=== PATIENT | female | born 1940 | race Caucasian/White ===

== ENCOUNTER 2024-04-02 17:52 | Emergency (ER) | payer MEDICARE, SELFPAY ==
[2024-04-02 17:54] VITALS: BP 142/78
[2024-04-02 17:55] VITALS: BP 142/78
[2024-04-02 17:59] VITALS: BMI 27.2
[2024-04-02 18:00] VITALS: BP 140/56
[2024-04-02 19:00] VITALS: BP 130/70
--- NOTE | 2024-04-02 19:16 | ED.GENMED ---
History of Present Illness
General
Chief Complaint: Fall
Source: patient, records and care home records
Exam Limitations: dementia
Time Seen by Provider: 04/02/24 18:48
Nursing documentation reviewed up to this point in time: agreed with
History of Present Illness
History of Present Illness:
Patient is an 83-year-old female presents to the emergency department after losing her balance and striking her head and right knee at the care home today. Patient denies any knee pain, neck or head pain. Patient denies syncope. Patient denies
chest pain, shortness of breath or palpitations. Patient denies any extremity or back pain. Patient was recently diagnosed with Parkinson's. 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 Patient denies any recent illnesses, fever,
chills, nasal congestion, sore throat or cough. Patient denies any GI or symptoms.
Past History
Past History
ED Past Medical History: HTN and Other (Parkinson's, normal pressure hydrocephalus)
Social History
Tobacco: Non-smoker
Alcohol: None
Personal:
Living: care home
Review of Systems
Review of Systems
All Other Systems: Not applicable
Phy Exam
Physical Exam
Physical Exam:
Physical Exam
General: No apparent distress, alert and appropriate, well nourished, well hydrated
HENT: Normocephalic with contusion at the lateral aspect of the right eyebrow without deformity, supple with no tracheal deviation or contusion
Eyes: Clear sclera, conjuctiva without injection, extraocular muscles intact
Heart: Regular rhythm and rate. No S3, S4. No murmur. No NVD
Lungs: No respiratory distress, no stridor, lung sounds clear and equal bilaterally, chest wall symmetrical and nontender
Abdomen: Soft, nontender, BS good
Neuro: Alert and usual mental status, CN II - XII intact, no motor focality
Skin: no rash
Psychiatric: well kept. interactive and cooperative
Extremities: No edema, cyanosis, tenderness. Patient has small contusion on the anterior right knee without tenderness, instability with stressing in any plane.
Musculoskeletal: No cervical, thoracic or lumbar spine tenderness. No pelvic or hip tenderness with full range of motion
Course
Orders/Labs/Results
Orders:
Orders
04/02/24 18:03
CT Head W/o Iv Contrast Urgent
Comment:
Reason For Exam: fall/pain/abrasion
Vital Signs
Initial and Last Documented VS:
Initial Vital Signs
BP
142/78
04/02/24 17:54
Last Documented Vital Signs
Temp Pulse Resp BP Pulse Ox
98.6 F 61 18 133/68 97
04/02/24 20:00 04/02/24 18:00 04/02/24 18:00 04/02/24 20:17 04/02/24 20:19
*Radiology
Radiology exam reviewed: radiology read reviewed
*Pulse Oximetry
Patient hypoxic: no
*EKG
Interpreted by ED Provider?: NA
*Organizational Consultant Interpretation
Rate: Organizational Consultant- N/A
*Critical Care Note
Total Time (30-74mins, 75-104mins- exclusive of procedures): Not Applicable
ED Attending Note
-
Portions of this chart may have been created with voice recognition software.� Occasional wrong word or��sound alike� substitutions may have occurred due to the inherent limitations of voice recognition software.
Discharge Plan
Departure
Patient Disposition: Assisted Living
Date of Disposition: 04/02/24
Time of Disposition: 20:33
Patient with high blood pressure during this ER visit?: No
Condition: Good
Covid-19: Not Applicable
Discharge Problem:
Contusion of scalp, Fall, Contusion of knee
Instructions: Head Injury in Adults (DC), Contusion (DC), Preventing falls in adults
Prescriptions:
No Action
nifedipine 30 mg Tablet Extended Release
30 mg PO BID 30 Days Qty: 60 0RF
carbidopa-levodopa 25-100 mg Tablet
1.5 tab PO QID@0800,1200,1600,2000 30 Days Qty: 180 0RF
losartan 100 mg Tablet
100 mg PO DAILY 30 Days Qty: 30 0RF
cholecalciferol (vitamin D3) 50 mcg (2,000 unit) Tablet
50 mcg PO DAILY 30 Days Qty: 30 0RF
pravastatin 40 mg Tablet
40 mg PO HS Qty: 0 0RF
multivitamin with minerals Tablet
1 tab PO DAILY Qty: 0 0RF
Rx Instructions:
9 mg Iron-400 mcg
sertraline 50 mg Tablet
50 mg PO HS Qty: 0 0RF
carbidopa-levodopa 50-200 mg Tablet Extended Release
1 tab PO HS Qty: 0 0RF
Referrals:
Polly Alva CRNP [Family Provider] - As needed
Activity Restrictions/Additional Instructions:
Continue present medications and therapy. Acetaminophen 650 mg every 6 hours as needed for pain.
Interventions
Interventions:
*Risk Screen - Suicide Last Done: 04/02/24 17:55
*General Assessment Last Done: 04/02/24 17:55
*Neglect/Abuse Screening Last Done: 04/02/24 17:55
ED- Fall Risk Assessment Last Done: 04/02/24 17:59
*ED COVID-19 Vaccine History Last Done: 04/02/24 17:55
ED-Musculoskeletal Assessment Last Done: 04/02/24 18:00
ED- Neurological Assessment Last Done: 04/02/24 18:00
ED-Skin Assessment Last Done: 04/02/24 18:00
Discharge Date and Time
Print Language: KISWAHILI
[2024-04-02 20:17] VITALS: BP 133/68
[2024-04-02 21:00] VITALS: BP 137/109
== END 2024-04-02 22:19 ==
LOC: EMR 17:52
PROVIDERS: EMERGENCY PHYSICIAN Emergency Medicine; FAMILY PHYSICIAN Nurse Practitioner Family
DX: S00.03XA Contusion of scalp, initial encounter (principal); S80.01XA Contusion of right knee, initial encounter; W19.XXXA Unspecified fall, initial encounter
CPT/HCPCS: 99284; 70450

== ENCOUNTER 2024-06-19 18:47 | Emergency (ER) | payer MEDICARE, SELFPAY ==
[2024-06-19 18:50] VITALS: BP 140/64
[2024-06-19 19:00] VITALS: BP 142/66
[2024-06-19 19:14] LABS: % Basophils 0.1 % (0-2); % Eosinophils 1.8 % (0-6); % Immature Granulocytes 0.1 % (0-0.5); % Lymphocytes 11.1 % (20.5-51.1); % Monocytes 6.7 % (1.7-9.3); % Neutrophils 80.2 % (42.2-75.2); Absolute Eosinophils 0.1 10^3/uL (0-0.7); Absolute Lymphocytes 0.8 10^3/uL (1.2-3.4); Absolute Monocytes 0.5 10^3/uL (0.1-0.6); Absolute Neutrophils 5.8 10^3/uL (1.4-6.5); Hematocrit 34.5 % (37.0-47.0); Hemoglobin 11.2 g/dL (12.0-16.0); Mean Corp Hgb Conc. 32.5 g/dL (33.0-37.0); Mean Corpuscular Hgb 29.5 pg (27.0-31.0); Mean Corpuscular Volume 90.8 fL (81.0-99.0); Mean Platelet Volume 9.4 fL (7.4-10.4); Nucleated Red Blood Cells % 0 %; Platelet Count 200 10^3/uL (130-400); White Blood Cell Count 7.2 10^3/uL (4.8-10.8)
[2024-06-19 19:26] LABS: ALT (SGPT) < 10 U/L (0-35); AST (SGOT) 18 U/L (14-36); Albumin 4.3 g/dl (3.5-5.0); Alkaline Phosphatase 95 U/L (38-126); Blood Urea Nitrogen 19 mg/dl (7-17); Calcium 9.2 mg/dl (8.4-10.2); Carbon Dioxide 27 mmol/L (22-30); Chloride 104 mmol/L (98-107); Estimated Creatinine Clearance 47 ml/min; Glucose 118 mg/dl (70-99); Potassium 3.9 mmol/L (3.5-5.1); Sodium 139 mmol/L (135-145); Total Bilirubin 1.1 mg/dl (0.2-1.3); Total Protein 7.1 g/dl (6.3-8.2); eGFR > 60.00
--- NOTE | 2024-06-19 19:39 | ED.GENMED ---
History of Present Illness
General
Chief Complaint: Cold/Flu/URI Symptoms
Source: patient
Exam Limitations: dementia
Time Seen by Provider: 06/19/24 18:58
Nursing documentation reviewed up to this point in time: agreed with
History of Present Illness
History of Present Illness:
Patient is an 83 year-old female sent from [facility] for evaluation. Patient complains of cough for the past several days patient was tested for COVID and was negative at the facility. Patient denies any shortness of breath. Other than cough
and congestion she has no complaints. She does have dementia but is able to give some good history.
Past History
Past History
ED Past Medical History: HTN and Other (Parkinson's, normal pressure hydrocephalus)
Social History
Tobacco: Non-smoker
Alcohol: None
Personal:
Living: detention
Review of Systems
Review of Systems
Allergies reviewed?: Yes
All Other Systems: ROS reviewed and negative except as documented in HPI and ROS
Constitutional: Reports no symptoms; Denies fever
Respiratory: Reports cough
Cardiac: Reports no symptoms
ABD/GI: Reports no symptoms
: Reports no symptoms
Musculoskeletal: Reports no symptoms
Skin: Reports no symptoms
Neurological: Reports no symptoms
Psychiatric: Reports no symptoms
Phy Exam
General Physical Exam
General Presentation: no apparent distress
General age: appears stated age
General Skin: warm and dry
General Habitus: normal
General Mental: alert
General Hydration: appears well hydrated
Cardiovascular Exam
Cardiovascular Exam: regular rate/rhythm, no murmur and normal peripheral pulses
Pulmonary Exam
Pulmonary Exam: lungs clear and no respiratory distress
Neurological Exam
Neurological Exam: alert
Musculoskeletal Exam
Musculoskeletal Exam: full ROM
Skin Exam
Skin Exam: normal color and warm/dry
Psychiatric Exam
Psychiatric Exam: normal mood/affect
Sepsis
Sepsis Screening
Sepsis Assessment: Sepsis Ruled Out
Sepsis Screen
Sepsis Screen: Sepsis Ruled Out
Date: 06/19/24
Time: 22:24
Course
Orders/Labs/Results
Orders:
Orders
06/19/24 19:01
Complete Blood Count/With Diff Urgent
Comprehensive Metabolic Panel Urgent
Influenza A+B Rapid Molecular Urgent
[place] Source: Nasal Swab
Specimen Description:
06/19/24 19:38
Chest [CR Chest - 2 Views ] Urgent
Comment:
Reason For Exam: cough
06/19/24 19:39
Albuterol Nebs [Ventolin Nebules] 2.5 mg INH R NOW STA
06/19/24 20:10
Straight cath- Treatment ONCE
06/19/24 20:12
Acetaminophen [Tylenol] 650 mg PO NOW STA
06/19/24 20:55
UA Reflex to Culture [Urinalysis Reflex To Culture] Urgent
Date Specimen was Collected: 06/19/24
Time Specimen was Collected: 20:42
Urine Microscopic Reflex Cult Urgent
Urine Culture Urgent
[place] Source: U
Specimen Description:
Obtained by: Random
Date Specimen was Collected: 06/19/24
Time Specimen was Collected: 20:42
Abnormal Lab Results
06/19/24 06/19/24
19:01 20:55
RBC 3.80 L 10^6/uL
(4.20-5.40)
Hgb 11.2 L g/dL
(12.0-16.0)
Hct 34.5 L %
(37.0-47.0)
MCHC 32.5 L g/dL
(33.0-37.0)
Absolute Lymphs (auto) 0.8 L 10^3/uL
(1.2-3.4)
Neutrophils % 80.2 H %
(42.2-75.2)
Lymphocytes % 11.1 L %
(20.5-51.1)
BUN 19 H mg/dl
(7-17)
Glucose 118 H mg/dl
(70-99)
Urine Ketones 1+ A
(Negative)
Ur Occult Blood Reflex 1+ A
(Negative)
Leukocyte Esterase Rfl 2+ A
(Negative)
Urine RBC 3-6 A /HPF
(0-2)
Urine Bacteria (Reflex) Few A
(Negative)
06/19/24 19:01
06/19/24 19:01
Vital Signs
Initial and Last Documented VS:
Initial Vital Signs
Temp Pulse Resp BP Pulse Ox
100.6 F H 82 18 140/64 97
06/19/24 18:50 06/19/24 18:50 06/19/24 18:50 06/19/24 18:50 06/19/24 18:50
Last Documented Vital Signs
Temp Pulse Resp BP Pulse Ox
99.9 F 98 17 133/57 95
06/19/24 20:50 06/19/24 21:30 06/19/24 21:30 06/19/24 21:00 06/19/24 21:30
MDM/Problems Addressed
Differential Diagnosis Includes:
Not limited to URI, bronchitis, influenza, pneumonia
MDM/Problems Addressed:
Patient is an 83-year-old female that was sent from [place] [facility] [place] living with cough and weakness. Patient had a negative COVID test there. Patient has some mild dementia however able to give history. She does complain of some cough and
congestion but she denies any shortness of breath. She presented with a very low-grade fever however presented nontoxic no tachypneic and no respiratory distress. She had a mild cough and was given a neb here in the ER. No acute findings of
pneumonia on x-ray. Patient has a normal white count, normal creatinine no acute UTI. Patient nontachycardic normal white count nontachypneic no evidence of sepsis.
Daughter at bedside does feel the patient looks well. She is comfortable patient going back to [facility] with close outpatient follow the family doctor. She does report that new mentioned that she was very tired and they could not wake
her up however patient has been completely awake alert no acute distress she ate here and she is nontoxic-appearing. symptoms likely viral /bronchitis.
Chronic conditions affecting care:
Dementia Parkinson's
*Critical Care Note
Total Time (30-74mins, 75-104mins- exclusive of procedures): Not Applicable
ED Attending Note
-
Portions of this chart may have been created with voice recognition software.� Occasional wrong word or��sound alike� substitutions may have occurred due to the inherent limitations of voice recognition software.
Discharge Plan
Departure
Patient Disposition: Home (Routine Discharge)
Date of Disposition: 06/19/24
Time of Disposition: 22:22
Patient with high blood pressure during this ER visit?: Yes
Condition: Fair
Covid-19: Not Applicable
Discharge Problem:
Acute bronchitis
Instructions: Acute Bronchitis, Adult (DC), BLOOD PRESSURE
Prescriptions:
No Action
quetiapine [Seroquel] 25 mg Tablet
12.5 mg PO DAILY@1600
acetaminophen [Tylenol] 325 mg Tablet
650 mg PO Q4H PRN (Reason: pain/fever )
nifedipine 30 mg Tablet Extended Release
30 mg PO BID 30 Days Qty: 60 0RF
carbidopa-levodopa 25-100 mg Tablet
1.5 tab PO QID@0800,1200,1600,2000 30 Days Qty: 180 0RF
losartan 100 mg Tablet
100 mg PO DAILY 30 Days Qty: 30 0RF
cholecalciferol (vitamin D3) 50 mcg (2,000 unit) Tablet
50 mcg PO DAILY 30 Days Qty: 30 0RF
pravastatin 40 mg Tablet
40 mg PO HS Qty: 0 0RF
multivitamin with minerals Tablet
1 tab PO DAILY Qty: 0 0RF
Rx Instructions:
9 mg Iron-400 mcg
sertraline 50 mg Tablet
50 mg PO HS Qty: 0 0RF
carbidopa-levodopa 50-200 mg Tablet Extended Release
1 tab PO HS Qty: 0 0RF
Referrals:
Polly Alva CRNP [Family Provider] -
Activity Restrictions/Additional Instructions:
Patient was evaluated here in the ER x-ray negative for pneumonia patient's labs are unremarkable. Patient was given a nebulizer here however symptoms are likely bronchitis viral syndrome. Patient is to be evaluated by family doctor in the next
several days. Return if any worsening of symptoms
Interventions
Interventions:
*Risk Screen - Suicide Last Done: 06/19/24 18:50
*General Assessment Last Done: 06/19/24 18:50
*Neglect/Abuse Screening Last Done: 06/19/24 18:50
ED- Fall Risk Assessment Last Done: 06/19/24 19:31
*ED COVID-19 Vaccine History Last Done: 06/19/24 18:50
ED- Pulmonary Assessment Last Done: 06/19/24 19:31
Discharge Date and Time
Print Language: SAMI
[2024-06-19] MEDS: VENTOLIN NEBULES 2.5 MG INH (19:42)
[2024-06-19 20:00] VITALS: BP 142/58
[2024-06-19] MEDS: TYLENOL 650 MG PO (20:52)
[2024-06-19 21:00] VITALS: BP 133/57
[2024-06-19 21:03] LABS: Urine Albumin Negative (Neg - Trace); Urine Bilirubin Negative (Negative); Urine Character Clear (Clear); Urine Color Yellow; Urine Glucose Negative (Negative); Urine Ketone 1+ (Negative); Urine Leukocyte 2+ (Negative); Urine Nitrite Negative (Negative); Urine Occult Blood 1+ (Negative); Urine Urobilinogen Negative (Neg - 1+)
[2024-06-19 21:18] LABS: Urine Bacteria Few (Negative)
[2024-06-19 22:52] VITALS: BP 134/72
== END 2024-06-19 22:53 | disposition home or self-care (01) ==
LOC: EMR 18:47
PROVIDERS: Nurse Practitioner; EMERGENCY PHYSICIAN Emergency Medicine; FAMILY PHYSICIAN Nurse Practitioner Family
DX: J20.9 Acute bronchitis, unspecified (principal); R53.1 Weakness; F02.A0 Dementia in other diseases classified elsewhere, mild, without behavioral disturbance, psychotic disturbance, mood disturbance, and anxiety; G20.A1 Parkinson's disease without dyskinesia, without mention of fluctuations; K52.9 Noninfective gastroenteritis and colitis, unspecified; M48.00 Spinal stenosis, site unspecified; F41.9 Anxiety disorder, unspecified; F32.A Depression, unspecified; Z88.6 Allergy status to analgesic agent; Z90.49 Acquired absence of other specified parts of digestive tract
CPT/HCPCS: 99283; 94640; 71046; 80053; 81003; 81015; 85025; 87086; 87502

== ENCOUNTER 2025-03-24 12:42 | Emergency (ER) | payer MEDICARE, SELFPAY ==
[2025-03-24 12:47] VITALS: BP 150/71
[2025-03-24 12:48] VITALS: BMI 29.7
--- NOTE | 2025-03-24 14:20 | ED.GENMED ---
History of Present Illness
General
Chief Complaint: Fall
Source: patient
Exam Limitations: none
Time Seen by Provider: 03/24/25 12:57
Nursing documentation reviewed up to this point in time: agreed with
History of Present Illness
History of Present Illness:
see mdm
Past History
Past History
ED Past Medical History: HTN and Other (Parkinson's, normal pressure hydrocephalus)
Social History
Tobacco: Non-smoker
Alcohol: None
Personal:
Living: correction
Phy Exam
Physical Exam
Physical Exam:
GENERAL: Alert , in no apparent distress
HEAD: NCAT
NECK: In a c-collar, I did remove the c-collar and patient seem to have a little bit of tenderness to her lower spine so it was placed back on for imaging, she had no significant trapezial muscle tenderness,
EYE: pupils equal and reactive, EOMs intact.
ENT: o/p clr, mmm. no hemotympanum
CARDIAC: Regular rate and rhythm, no edema
LUNGS: Clear breath sounds bilaterally, no acute respiratory distress, no wheezes/rales/rhonchi
ABDOMEN: Soft, without focal tenderness, no r/g, no cvat
NEUROLOGICAL: Alert and oriented x 3 Can recall the incident, no focal neuro deficits, CN intact, 5/5 strength, sensation intact
SKIN: Warm and dry,
MUSCULOSKELETAL: No edema, well p shoulders, hips, knees, nontender, full painless range of motion
PSYCH: Normal and appropriate interaction.
Course
Orders/Labs/Results
Orders:
Orders
03/24/25 13:22
CT Cervical Spine W/o Iv Contr Urgent
Comment:
Reason For Exam: slid to ground, neck pain to L shoulder
Vital Signs
Initial and Last Documented VS:
Initial Vital Signs
Pulse Resp Pulse Ox
84 18 98
03/24/25 12:46 03/24/25 12:46 03/24/25 12:46
Last Documented Vital Signs
Temp Pulse Resp BP Pulse Ox
37.1 C 68 18 142/73 97
03/24/25 12:47 03/24/25 13:30 03/24/25 13:30 03/24/25 14:37 03/24/25 14:38
MDM/Problems Addressed
Differential Diagnosis Includes:
see MDM
MDM/Problems Addressed:
Note:
CHIEF COMPLAINT(S)
Neck discomfort after slipping off the bed.
HISTORY OF PRESENT ILLNESS
The patient is an 84-year-old female who presented after an event where she inadvertently slid off her bed while reaching for her slippers. She did not experience a fall in the traditional sense, as she slid to the ground and landed on her buttocks.
She did not hit her head or lose consciousness and reports having some padding that cushioned her fall. Since the incident, she has experienced neck discomfort, but no radiating pain down the arm, tingling, numbness, chest pain, or shortness of
breath. The patient denies taking any blood thinners.
The patients , who uses a wheelchair, did not witness the incident. After realizing what happened, he used a call button to alert assistance. The patient did not require immediate help from her or EMS. On-site staff assisted her with
getting up.
The patient is currently in a cervical collar for neck stabilization but finds it uncomfortable. There is tenderness over the neck area where the discomfort was initially felt. There were no episodes of the head snapping back or any wounds on the
head.
ADDITIONAL HISTORY OBTAINED FROM SOURCE OTHER THAN THE PATIENT
Information regarding the call button used to alert assistance was obtained from the patient�s .
PHYSICAL EXAM
- Nursing notes reviewed and vital signs reviewed.
- Some tenderness was noted over the cervical region where the patient reported initial discomfort.
- The patient can move her arms without exacerbating pain.
- No evident bruises or swelling in the neck and shoulder regions.
- The patient does not exhibit pain when sitting up or moving under observation.
PLAN
- Continue monitoring for any development of symptoms or changes in the cervical regions pain.
- Obtain a computed tomography scan of the cervical spine to rule out any significant injury.
- Educate the patient about the importance of keeping the cervical collar on until imaging confirms no serious injury.
- Assess the need for analgesics as requested by the patient.
DIFFERENTIAL DIAGNOSIS
The Differential Diagnosis includes, in no particular order and is not limited to:
- Cervical strain
- Cervical spine fracture
- Cervical disc herniation
- Muscle strain
- Soft tissue contusion
- Cervical radiculopathy
- Spinal cord injury
- Neck ligament sprain
- Mild traumatic brain injury
- Anxiety related to incident
84 y/o parkinsons
from [place]
here after slide/fal down to buttocks this am when she was readching for something to get out of bed
she landed on buttocks
witnessed by
both say no head strike
she had some L sided neck/shoulder pain after the fall so she was placed in collar
no weakness/numbness
no cp, sob, dizziness
pt feels better now and denies headache, head strike
no thinners
ct cervica spine neg
did not see indication for CT head, pt was able to fully recount story that corroborated who told EMS
pt was able to stand and pivot at the bedside
d/c home back to [place]
*Pulse Oximetry
SaO2: 97
Oxygen Mode of Delivery: Room air
Patient hypoxic: no (98)
*Critical Care Note
Total Time (30-74mins, 75-104mins- exclusive of procedures): Not Applicable
ED Attending Note
-
Portions of this chart may have been created with voice recognition software.� Occasional wrong word or��sound alike� substitutions may have occurred due to the inherent limitations of voice recognition software.
Discharge Plan
Departure
Patient Disposition: Senior Living/SNF
Date of Disposition: 03/24/25
Time of Disposition: 14:33
Patient with high blood pressure during this ER visit?: Yes
Condition: Fair
Covid-19: Not Applicable
Discharge Problem:
Fall, Cervical muscle strain
Instructions: Cervical Sprain ED
Prescriptions:
No Action
quetiapine [Seroquel] 25 mg Tablet
12.5 mg PO DAILY@1600
acetaminophen [Tylenol] 325 mg Tablet
650 mg PO Q4H PRN (Reason: pain/fever )
nifedipine 30 mg Tablet Extended Release
30 mg PO BID 30 Days Qty: 60 0RF
carbidopa-levodopa 25-100 mg Tablet
1.5 tab PO .COMPLEX 30 Days Qty: 180 0RF
Rx Instructions:
Frequency: QID@0800,1200,1600,2000
losartan 100 mg Tablet
100 mg PO DAILY 30 Days Qty: 30 0RF
cholecalciferol (vitamin D3) 50 mcg (2,000 unit) Tablet
50 mcg PO DAILY 30 Days Qty: 30 0RF
pravastatin 40 mg Tablet
40 mg PO HS Qty: 0 0RF
multivitamin with minerals Tablet
1 tab PO DAILY Qty: 0 0RF
Rx Instructions:
9 mg Iron-400 mcg
sertraline 50 mg Tablet
50 mg PO HS Qty: 0 0RF
carbidopa-levodopa 50-200 mg Tablet Extended Release
1 tab PO HS Qty: 0 0RF
Referrals:
Vernon Elaine MD [Family Provider, Family Practice]
Activity Restrictions/Additional Instructions:
THE CAT SCAN OF YOUR SPINE SHOWED DEGENERATIVE CHANGES, ARTHRITIS BUT NO FRACTURES
TAKE TYLENOL EVERY 6 HOURS NEEDED FOR PAIN
RETURN FOR ANY CONCERNS.
Interventions
Interventions:
*Risk Screen - Suicide Last Done: 03/24/25 12:51
*General Assessment Last Done: 03/24/25 12:51
*Neglect/Abuse Screening Last Done: 03/24/25 12:51
*ED- Fall Risk Assessment Last Done: 03/24/25 12:51
*ED COVID-19 Vaccine History Last Done: 03/24/25 12:51
*Nursing Disposition Last Done: 03/24/25 16:11
ED-Musculoskeletal Assessment Last Done: 03/24/25 12:57
ED- Neurological Assessment Last Done: 03/24/25 12:57
ED-Skin Assessment Last Done: 03/24/25 12:57
Discharge Date and Time
Discharge Date/Time: 03/24/25 16:57
Print Language: BENGALI
[2025-03-24 14:37] VITALS: BP 142/73
== END 2025-03-24 16:57 ==
LOC: EMR 12:42
PROVIDERS: EMERGENCY PHYSICIAN Emergency Medicine; FAMILY PHYSICIAN Family Medicine
DX: S16.1XXA Strain of muscle, fascia and tendon at neck level, initial encounter (principal); W19.XXXA Unspecified fall, initial encounter; I10 Essential (primary) hypertension; G20.A1 Parkinson's disease without dyskinesia, without mention of fluctuations; G91.2 (Idiopathic) normal pressure hydrocephalus
CPT/HCPCS: 99284; 72125